=== PATIENT | male | born 1965 | race Caucasian/White ===

== ENCOUNTER 2023-09-20 17:18 | Inpatient (IN) ==
--- NOTE | 2023-09-20 17:40 | DR.GENAD ---
HPI <Fabio Ingram - Last Filed: 09/21/23 08:22> Time Seen Time Seen by Provider: 09/20/23 17:28 Complaint/Symptoms Chief Complaint Doctors Comments: 58-year-old male presents for evaluation. Patient was ill last month, had a persistent cough, workup revealed concerns for cancer. Patient underwent a biopsy approximately 12 days ago, received the results yesterday. Patient has been coughing up blood intermittently over the past 3 days, bright red, small amounts. Having right-sided chest pain, off and on, sharp, does not radiate. No shortness of breath, no pleurisy. Denies fevers but, did have chills today. No report of vomiting or diarrhea. Has had swelling of bilateral feet/ankles over the past 3 months. Nurses notes reviewed Nurses Notes Review: Yes Source History Provided: Patient and Family Member (Brother) Mode of Arrival Mode of Arrival: Ambulatory PM <Fabio Ingram - Last Filed: 09/21/23 08:22> PMH Past Medical History: Yes Past Medical History Comment: Lung CA (dx'd 09/2023) Past Surgical History: Yes Surgical History: Appendectomy and Tonsillectomy Family History History of Family Medical Conditions: Yes Family Medical History: Diabetes Mellitus, Cancer and Heart Failure Social History Does patient currently use any type of tobacco product: No Have you used tobacco products in the last 12 months: Yes (Quit 3 months ago) Alcohol Use: None Do you use any recreational Drugs:: No ROS <Fabio Ingram - Last Filed: 09/21/23 08:22> Review of Systems Constitutional: Chills Eyes: No Symptoms Reported ENTM: No Symptoms Reported Respiratoy: Moist Cough Cardiovascular: Chest Pain (Right side) Gastrointestinal/Abdominal: No Symptoms Reported Genitourinary: No Symptoms Reported Neurological: No Symptoms Reported Musculoskeletal: No Symptoms Reported Integumentary: No Symptoms Reported Hematologic/Lymphatic: No Symptoms Reported Psychiatric: No Symptoms Reported All Other Systems: Reviewed and Negative PE <Fabio Ingram - Last Filed: 09/21/23 08:22> Vital Signs Vitals: Vital Signs Temperature 98.8 F Pulse Rate 101 Pulse Rate 110 Pulse Rate 99 Pulse Rate 105 Pulse Rate 105 Pulse Rate 102 Pulse Rate 106 Pulse Rate 111 Pulse Rate 117 Pulse Rate 121 Respiratory Rate 22 Blood Pressure 122/60 Blood Pressure 119/62 Blood Pressure 125/67 Blood Pressure 131/72 Blood Pressure 138/67 O2 Sat by Pulse Oximetry 98 O2 Sat by Pulse Oximetry 94 O2 Sat by Pulse Oximetry 98 O2 Sat by Pulse Oximetry 98 O2 Sat by Pulse Oximetry 99 O2 Sat by Pulse Oximetry 99 O2 Sat by Pulse Oximetry 99 O2 Sat by Pulse Oximetry 98 O2 Sat by Pulse Oximetry 98 O2 Sat by Pulse Oximetry 98 General General Appearance: Alert and In No Apparent Distress Eyes Eye exam: PERRL and EOMI ENT ENT Exam: Normal Oropharynx, Mucous Membranes Moist and TM's Normal Bilaterally Neck Neck Exam: Normal Inspection and Full ROM Respiratory Respiratory Exam: Normal Lung Sounds Bilat; negative Accessory Muscle Use or Respiratory Distress Cardiovascular Cardiovascular Exam: Regular Rate, Normal Rhythm and Normal Heart Sounds Abdominal Exam Abdominal Exam: Normal Bowel Sounds and Soft; negative Tenderness Extremities Extremities Exam: Edema (2+ pitting edema of bilateral lower exts) Neurologic Neurological Exam: Alert, Oriented X3 and CN II-XII Intact; negative Motor Sensory Deficit Skin Skin Exam: Warm and Dry <Krysten Burns - Last Filed: 09/20/23 21:02> Vital Signs Vitals: Vital Signs Temperature 98.8 F Pulse Rate 101 Pulse Rate 110 Pulse Rate 99 Pulse Rate 105 Pulse Rate 105 Pulse Rate 102 Pulse Rate 106 Pulse Rate 111 Pulse Rate 117 Pulse Rate 121 Respiratory Rate 22 Blood Pressure 122/60 Blood Pressure 119/62 Blood Pressure 125/67 Blood Pressure 131/72 Blood Pressure 138/67 O2 Sat by Pulse Oximetry 98 O2 Sat by Pulse Oximetry 94 O2 Sat by Pulse Oximetry 98 O2 Sat by Pulse Oximetry 98 O2 Sat by Pulse Oximetry 99 O2 Sat by Pulse Oximetry 99 O2 Sat by Pulse Oximetry 99 O2 Sat by Pulse Oximetry 98 O2 Sat by Pulse Oximetry 98 O2 Sat by Pulse Oximetry 98 COURSE <Fabio Ingram - Last Filed: 09/21/23 08:22> Treatment Treatment: 58-year-old male with a recent diagnosis of lung cancer, no treatment initiated yet. Has been having hemoptysis over the past 3 days. Had some chills today. W/u initiated. WBC elevated to 17K. Mildly anemic with a Hgb of 9. CXR with increased markings on the right side consistent with neoplastic process.. CTA obtained, shows postobstructive pneumonia of the right upper lobe, left-sided pulmonary embolus, and neoplastic changes. Patient informed of results. Discussed with Dr. Russell, covering for admission, accepts the admission. Patient was given IV Rocephin to start for pneumonia, will treat with Zosyn. Will treat wih SC Lovenox for PE. ROR <Fabio Ingram - Last Filed: 09/21/23 08:22> Labs Reviewed Laboratory Results Reviewed?: Yes 09/21/23 05:30 09/21/23 05:30 Laboratory: WBC 17.3 X10^3/uL (3.6-10.0) H 09/20/23 17:50 RBC 2.74 X10^6/uL (4.7-6.0) L 09/20/23 17:50 Hgb 9.0 g/dL (13.5-18.0) L 09/20/23 17:50 Hct 25.5 % (42.0-54.0) L 09/20/23 17:50 MCV 93.1 fL (80.0-100.0) 09/20/23 17:50 MCH 32.6 pg (27.0-34.0) 09/20/23 17:50 MCHC 35.1 g/dL (33.0-35.0) H 09/20/23 17:50 RDW 15.2 % (11.6-16.5) 09/20/23 17:50 Plt Count 372 X10^3/uL (150.0-450.0) 09/20/23 17:50 MPV 6.6 fL (7.4-11.0) L 09/20/23 17:50 Neut % (Auto) 87.0 % (42.0-75.0) H 09/20/23 17:50 Lymph % (Auto) 4.0 % (21.0-51.0) L 09/20/23 17:50 [place] % (Auto) 7.1 % (0.0-13.0) 09/20/23 17:50 Eos % (Auto) 1.0 % (0.9-2.9) 09/20/23 17:50 Baso % (Auto) 0.9 % (0.2-1.0) 09/20/23 17:50 Neut # (Auto) 15.0 x10^3/uL (2.2-4.8) H 09/20/23 17:50 Lymph # (Auto) 0.7 X10^3/uL (1.3-2.9) L 09/20/23 17:50 [place] # (Auto) 1.2 x10^3/uL (0.3-0.8) H 09/20/23 17:50 Eos # (Auto) 0.2 x10^3/uL (0.0-0.2) 09/20/23 17:50 Baso # (Auto) 0.2 X10^3/uL (0.0-0.1) H 09/20/23 17:50 Absolute Nucleated RBC 0.0 /100WBC 09/20/23 17:50 PT 14.3 SECONDS (11.8-14.3) 09/20/23 17:50 INR Target Range - 09/20/23 17:50 INR 1.13 (0.8-1.3) 09/20/23 17:50 APTT 30.8 SECONDS (22.9-36.5) 09/20/23 17:50 PTT Comment - 09/20/23 17:50 Sodium 133 mmol/L (136-145) L 09/20/23 17:50 Corrected Sodium TNP 09/20/23 17:50 Potassium 3.9 mmol/L (3.5-5.1) 09/20/23 17:50 Chloride 99 mmol/L (98-107) 09/20/23 17:50 Carbon Dioxide 25.8 mmol/L (21-32) 09/20/23 17:50 BUN 15 mg/dL (7-18) 09/20/23 17:50 Creatinine 0.72 mg/dL (0.70-1.30) 09/20/23 17:50 Est GFR (MDRD) Af Amer > 60 (>60) 09/20/23 17:50 Est GFR (MDRD) Non-Af > 60 (>60) 09/20/23 17:50 Glucose 93 mg/dL (65-99) 09/20/23 17:50 Lactic Acid 0.7 mmol/L (0.4-2.0) 09/20/23 17:50 Calcium 8.9 mg/dL (8.5-10.1) 09/20/23 17:50 Corrected Calcium 10.3 mg/dL (8.5-10.1) H 09/20/23 17:50 Total Bilirubin 0.70 mg/dL (0.2-1.0) 09/20/23 17:50 AST 33 Units/L (15-37) 09/20/23 17:50 ALT 42 Units/L (12-78) 09/20/23 17:50 Alkaline Phosphatase 392 Units/L (46-116) H 09/20/23 17:50 B-Natriuretic Peptide 79.5 pg/mL (0-79) H 09/20/23 17:55 Total Protein 7.7 g/dL (6.4-8.2) 09/20/23 17:50 Albumin 2.3 g/dL (3.4-5.0) L 09/20/23 17:50 Globulin 5.4 g/dL (2.5-4.5) H 09/20/23 17:50 Albumin/Globulin Ratio 0.4 Ratio (1.1-2.1) L 09/20/23 17:50 Lipase 16 Units/L (16-77) 09/20/23 17:50 Specimen Type Clean catch urine 09/20/23 19:46 Urine Color Yellow (YELLOW) 09/20/23 19:46 Urine Appearance Clear (CLEAR) 09/20/23 19:46 Urine pH 6.5 (5.0 - 8.0) 09/20/23 19:46 Ur Specific [place] 1.010 (1.000-1.030) 09/20/23 19:46 Urine Protein 1+ (NEGATIVE) 09/20/23 19:46 Urine Glucose (UA) Negative (NEGATIVE) 09/20/23 19:46 Urine Ketones Negative (NEGATIVE) 09/20/23 19:46 Urine Blood Negative (NEGATIVE) 09/20/23 19:46 Urine Nitrite Negative (NEGATIVE) 09/20/23 19:46 Urine Bilirubin Negative (NEGATIVE) 09/20/23 19:46 Urine Urobilinogen Normal (NORMAL) 09/20/23 19:46 Ur Leukocyte Esterase Negative (NEGATIVE) 09/20/23 19:46 Urine RBC None seen /HPF (0-3) 09/20/23 19:46 Urine WBC None seen /HPF (0-5) 09/20/23 19:46 Ur Squamous Epith Cells Rare /HPF (NEGATIVE) 09/20/23 19:46 Urine Bacteria Negative /HPF (NEGATIVE) 09/20/23 19:46 Ur Culture Indicated? No/not indicated 09/20/23 19:46 XRAY XRAY Interpreted by: Radiologist X-ray Results: EXAM: CTA, CHEST HISTORY: Patient states he got a confirmation of Lung CA on Monday after a biopsy in [facility] per Dr Perrin. Patient states he has been coughing up blood,; COMPARISON: Frontal chest radiograph September 20, 2023 TECHNIQUE: CT angiography of the chest with intravenous contrast. Three-dimensional recons tructions and/or MIPS images were produced and reviewed. FINDINGS: The bolus timing is adequate. There is a small volume of partially occlusive thrombus in left upper lobe pulmonary arterial branch. There is a large right hilar lung mass spanning approximately 8.3 x 6.4 cm encasing the right main pulmonary artery and right main pulmonary bronchus. There is compression and occlusion of the right upper lobe pulmonary artery resulting in no pulmonary arterial flow in the right upper lobe pulmonary artery. Limited visualization of the upper abdomen demonstrates no acute process. Lung windows demonstrate emphysematous change and subpleural cystic formation bilaterally. There is airspace infiltrate in the right upper lobe suggesting postobstructive pneumonia. There is right lower lobe pleural thickening versus small effusion. There is biapical lung scarring. No suspicious bony lesion. IMPRESSION: Positive study for mild burden of partially occlusive thrombus in left upper lobe lobar pulmonary arterial branch. The RV to LV ratio is 0.8. No sign of right heart strain. Large right upper lobe and hilar lung mass encasing bronchovascular structures of the right lung including complete occlusion of the right upper lobe pulmonary arterial branch. Right upper lobe postobstructive pneumonia. Dose reduction techniques including automated exposure control (AEC) and adjustment of mA and kv were utilized. THIS IS AN ELECTRONICALLY VERIFIED FINAL REPORT 09/20/2023 8:02 PM - Electronically signed by Cosmo Morse MD <Krytsen Burns - Last Filed: 09/20/23 21:02> Labs Reviewed Laboratory: WBC 17.3 X10^3/uL (3.6-10.0) H 09/20/23 17:50 RBC 2.74 X10^6/uL (4.7-6.0) L 09/20/23 17:50 Hgb 9.0 g/dL (13.5-18.0) L 09/20/23 17:50 Hct 25.5 % (42.0-54.0) L 09/20/23 17:50 MCV 93.1 fL (80.0-100.0) 09/20/23 17:50 MCH 32.6 pg (27.0-34.0) 09/20/23 17:50 MCHC 35.1 g/dL (33.0-35.0) H 09/20/23 17:50 RDW 15.2 % (11.6-16.5) 09/20/23 17:50 Plt Count 372 X10^3/uL (150.0-450.0) 09/20/23 17:50 MPV 6.6 fL (7.4-11.0) L 09/20/23 17:50 Neut % (Auto) 87.0 % (42.0-75.0) H 09/20/23 17:50 Lymph % (Auto) 4.0 % (21.0-51.0) L 09/20/23 17:50 [place] % (Auto) 7.1 % (0.0-13.0) 09/20/23 17:50 Eos % (Auto) 1.0 % (0.9-2.9) 09/20/23 17:50 Baso % (Auto) 0.9 % (0.2-1.0) 09/20/23 17:50 Neut # (Auto) 15.0 x10^3/uL (2.2-4.8) H 09/20/23 17:50 Lymph # (Auto) 0.7 X10^3/uL (1.3-2.9) L 09/20/23 17:50 [place] # (Auto) 1.2 x10^3/uL (0.3-0.8) H 09/20/23 17:50 Eos # (Auto) 0.2 x10^3/uL (0.0-0.2) 09/20/23 17:50 Baso # (Auto) 0.2 X10^3/uL (0.0-0.1) H 09/20/23 17:50 Absolute Nucleated RBC 0.0 /100WBC 09/20/23 17:50 PT 14.3 SECONDS (11.8-14.3) 09/20/23 17:50 INR Target Range - 09/20/23 17:50 INR 1.13 (0.8-1.3) 09/20/23 17:50 APTT 30.8 SECONDS (22.9-36.5) 09/20/23 17:50 PTT Comment - 09/20/23 17:50 Sodium 133 mmol/L (136-145) L 09/20/23 17:50 Corrected Sodium TNP 09/20/23 17:50 Potassium 3.9 mmol/L (3.5-5.1) 09/20/23 17:50 Chloride 99 mmol/L (98-107) 09/20/23 17:50 Carbon Dioxide 25.8 mmol/L (21-32) 09/20/23 17:50 BUN 15 mg/dL (7-18) 09/20/23 17:50 Creatinine 0.72 mg/dL (0.70-1.30) 09/20/23 17:50 Est GFR (MDRD) Af Amer > 60 (>60) 09/20/23 17:50 Est GFR (MDRD) Non-Af > 60 (>60) 09/20/23 17:50 Glucose 93 mg/dL (65-99) 09/20/23 17:50 Lactic Acid 0.7 mmol/L (0.4-2.0) 09/20/23 17:50 Calcium 8.9 mg/dL (8.5-10.1) 09/20/23 17:50 Corrected Calcium 10.3 mg/dL (8.5-10.1) H 09/20/23 17:50 Total Bilirubin 0.70 mg/dL (0.2-1.0) 09/20/23 17:50 AST 33 Units/L (15-37) 09/20/23 17:50 ALT 42 Units/L (12-78) 09/20/23 17:50 Alkaline Phosphatase 392 Units/L (46-116) H 09/20/23 17:50 B-Natriuretic Peptide 79.5 pg/mL (0-79) H 09/20/23 17:55 Total Protein 7.7 g/dL (6.4-8.2) 09/20/23 17:50 Albumin 2.3 g/dL (3.4-5.0) L 09/20/23 17:50 Globulin 5.4 g/dL (2.5-4.5) H 09/20/23 17:50 Albumin/Globulin Ratio 0.4 Ratio (1.1-2.1) L 09/20/23 17:50 Lipase 16 Units/L (16-77) 09/20/23 17:50 Specimen Type Clean catch urine 09/20/23 19:46 Urine Color Yellow (YELLOW) 09/20/23 19:46 Urine Appearance Clear (CLEAR) 09/20/23 19:46 Urine pH 6.5 (5.0 - 8.0) 09/20/23 19:46 Ur Specific [place] 1.010 (1.000-1.030) 09/20/23 19:46 Urine Protein 1+ (NEGATIVE) 09/20/23 19:46 Urine Glucose (UA) Negative (NEGATIVE) 09/20/23 19:46 Urine Ketones Negative (NEGATIVE) 09/20/23 19:46 Urine Blood Negative (NEGATIVE) 09/20/23 19:46 Urine Nitrite Negative (NEGATIVE) 09/20/23 19:46 Urine Bilirubin Negative (NEGATIVE) 09/20/23 19:46 Urine Urobilinogen Normal (NORMAL) 09/20/23 19:46 Ur Leukocyte Esterase Negative (NEGATIVE) 09/20/23 19:46 Urine RBC None seen /HPF (0-3) 09/20/23 19:46 Urine WBC None seen /HPF (0-5) 09/20/23 19:46 Ur Squamous Epith Cells Rare /HPF (NEGATIVE) 09/20/23 19:46 Urine Bacteria Negative /HPF (NEGATIVE) 09/20/23 19:46 Ur Culture Indicated? No/not indicated 09/20/23 19:46 Opioid <Fabio Ingram - Last Filed: 09/21/23 08:22> Opioid Risk Tool Total: 0 Total Score Risk Category: Low Risk Copyright: Jarrett ANDRDAE predicting aberrant behaviors <Krysten Burns - Last Filed: 09/20/23 21:02> Opioid Risk Tool Total: 0 Total Score Risk Category: Low Risk Discharge Plan Diagnosis Discharge Problem: Pulmonary embolism, Pneumonia, Lung cancer Discharge Plan Patient Disposition: 09 ADMITTED INPATIENT Condition: Stable
[2023-09-20 17:44] VITALS: BMI 23.5
[2023-09-20] MEDS ORDERED: NS 500 ML IV 500 ML IV ONE (17:52)
[2023-09-20] MEDS: NS 500 ML IV 500 ML IV ONE (17:57)
[2023-09-20 18:11] LABS: BASOPHILS # (AUTO) 0.2 X10^3/uL (0.0-0.1); BASOPHILS % (AUTO) 0.9 % (0.2-1.0); EOSINOPHILS # (AUTO) 0.2 x10^3/uL (0.0-0.2); HEMATOCRIT 25.5 % (42.0-54.0); LYMPHOCYTES # (AUTO) 0.7 X10^3/uL (1.3-2.9); MEAN CORPUSCULAR HEMOGLOBIN 32.6 pg (27.0-34.0); MEAN CORPUSCULAR HGB CONC 35.1 g/dL (33.0-35.0); MEAN CORPUSCULAR VOLUME 93.1 fL (80.0-100.0); MEAN PLATELET VOLUME 6.6 fL (7.4-11.0); MONOCYTES # (AUTO) 1.2 x10^3/uL (0.3-0.8); MONOCYTES % (AUTO) 7.1 % (0.0-13.0); PLATELET COUNT 372 X10^3/uL (150.0-450.0); RED BLOOD COUNT 2.74 X10^6/uL (4.7-6.0); RED CELL DISTRIBUTION WIDTH 15.2 % (11.6-16.5); WHITE BLOOD COUNT 17.3 X10^3/uL (3.6-10.0)
[2023-09-20 18:18] LABS: INR 1.13 (0.8-1.3)
[2023-09-20 18:23] LABS: ALANINE AMINOTRANSFERASE 42 Units/L (12-78); ALBUMIN 2.3 g/dL (3.4-5.0); ALKALINE PHOSPHATASE 392 Units/L (46-116); ASPARTATE AMINO TRANSFERASE 33 Units/L (15-37); BLOOD UREA NITROGEN 15 mg/dL (7-18); CALCIUM 8.9 mg/dL (8.5-10.1); CARBON DIOXIDE 25.8 mmol/L (21-32); CHLORIDE 99 mmol/L (98-107); COR CA(FOR HYPOALB) 10.3 mg/dL (8.5-10.1); CREATININE 0.72 mg/dL (0.70-1.30); GLUCOSE 93 mg/dL (65-99); LIPASE 16 Units/L (16-77); POTASSIUM 3.9 mmol/L (3.5-5.1); SODIUM 133 mmol/L (136-145); TOTAL PROTEIN 7.7 g/dL (6.4-8.2); eGFR NON BLACK RACES > 60 (>60)
[2023-09-20] MEDS ORDERED: ROCEPHIN VIAL 1 GRAM ONE (19:03)
[2023-09-20] MEDS: ROCEPHIN VIAL 1 GRAM IVP ONE (19:06)
[2023-09-20] MEDS: NS 100 ML IV 100 ML ONE (19:28)
[2023-09-20] MEDS: OMNIPAQUE 350 mg/mL 100 mL BTL 100 ML ONE (19:29)
[2023-09-20 19:55] LABS: BILIRUBIN,URINE NEGATIVE (NEGATIVE); BLOOD/HEMOGLOBIN,URINE NEGATIVE (NEGATIVE); GLUCOSE, URINE NEGATIVE (NEGATIVE); KETONES,URINE NEGATIVE (NEGATIVE); LEUKOCYTE ESTERASE ,URINE NEGATIVE (NEGATIVE); NITRITES,URINE NEGATIVE (NEGATIVE); PH,URINE 6.5 (5.0 - 8.0); PROTEIN,URINE 1+ (NEGATIVE); UROBILINOGEN,URINE NORMAL (NORMAL)
[2023-09-20 19:56] LABS: APPEARANCE,URINE CLEAR (CLEAR); COLOR,URINE YELLOW (YELLOW)
[2023-09-20 19:59] LABS: BACTERIA,URINE NEGATIVE /HPF (NEGATIVE); RBC,URINE NONE SEEN /HPF (0-3); SQUAMOUS EPITHELIAL CELL,UR RARE /HPF (NEGATIVE)
--- NOTE | 2023-09-20 20:06 | CT ---
EXAM: CTA, CHEST HISTORY: Patient states he got a confirmation of Lung CA on Monday after a biopsy [place] Dr Perrin. Patie nt states he has been coughing up blood,; COMPARISON: Frontal chest radiograph September 20, 2023 TECHNIQUE: CT angiography of the chest with intravenous contrast. Three-dimensional reconstructions and/or MIPS images were produced and reviewed. FINDINGS: The bolus timing is adequate. There is a small volume of partially occlusive thrombus in left upper lobe pulmonary arterial branch. There is a large right hilar lung mass spanning approximately 8.3 x 6.4 cm encasing the right main pulmonary artery and right main pulmonary bronchus. There is compress ion and occlusion of the right upper lobe pulmonary artery resulting in no pulmonary arterial flow in the right upper lobe pulmonary artery. Limited visualization of the upper abdomen demonstrates no acute process. Lung windows demonstrate e mphysematous change and subpleural cystic formation bilaterally. There is airspace infiltrate in the right upper lobe suggesting postobstructive pneumonia. There is right lower lobe pleural thickening versus small effusion. There is biapical lung scarring. No suspicious bony lesion. IMPRESSION: Positive study for mild burden of partially occlusive thrombus in left upper lobe lobar pulmonary art erial branch. The RV to LV ratio is 0.8. No sign of right heart strain. Large right upper lobe and hilar lung mass encasing bronchovascular structures of the right lung incl uding complete occlusion of the right upper lobe pulmonary arterial branch. Right upper lobe postobstructive pneumonia. Dose reduction techniques including automated exposure control (AEC) and adjustment of mA and kv were utilized. THIS IS AN ELECTRONICALLY VERIFIED FINAL REPORT 09/20/2023 8:02 PM - Electronically signed by Cosmo Morse MD
[2023-09-20] MEDS: LOVENOX INJ 80 MG SYR SC SCH (23:57)
[2023-09-20] MEDS: ZOSYN VIAL 3.375 GRAMS 3.375 G in NS 100 ML IV 100 ML IV SCH (23:57)
--- NOTE | 2023-09-21 00:24 | RAD ---
EXAM:CHEST, 1 VIEWHISTORY:hemoptysis, recent lung CA dx;COMPARISON:None.TECHNIQUE:A single frontal view of the chest was obtained.FINDINGS:The heart is normal in size. There is abnormal increased density along the right paratracheal border and involving the medial aspect of the right upper lobe with prominence of the right hilum. Alveolar infiltrates throughout the right lung is also suspected. There is no effusion. There is no pneumothorax. The osseous structures are intact.IMPRESSION:Large right paratracheal mass lesion, infiltrate and probable postobstructive pneumonia involving the right lung.THIS IS AN ELECTRONICALLY VERIFIED FINAL REPORT09/21/2023 12:21 AM - Electronically signed by Trini Miles MD
[2023-09-21 06:21] LABS: BASOPHILS # (AUTO) 0.1 X10^3/uL (0.0-0.1); BASOPHILS % (AUTO) 0.9 % (0.2-1.0); EOSINOPHILS # (AUTO) 0.3 x10^3/uL (0.0-0.2); EOSINOPHILS % (AUTO) 1.8 % (0.9-2.9); HEMATOCRIT 24.6 % (42.0-54.0); HEMOGLOBIN 8.6 g/dL (13.5-18.0); LYMPHOCYTES # (AUTO) 1.4 X10^3/uL (1.3-2.9); LYMPHOCYTES % (AUTO) 10.3 % (21.0-51.0); MEAN CORPUSCULAR HEMOGLOBIN 32.4 pg (27.0-34.0); MEAN CORPUSCULAR HGB CONC 34.9 g/dL (33.0-35.0); MEAN CORPUSCULAR VOLUME 92.8 fL (80.0-100.0); MEAN PLATELET VOLUME 6.8 fL (7.4-11.0); MONOCYTES # (AUTO) 1.3 x10^3/uL (0.3-0.8); NEUTROPHILS # (AUTO) 10.9 x10^3/uL (2.2-4.8); PLATELET COUNT 384 X10^3/uL (150.0-450.0); RED BLOOD COUNT 2.65 X10^6/uL (4.7-6.0); RED CELL DISTRIBUTION WIDTH 15.6 % (11.6-16.5); WHITE BLOOD COUNT 13.9 X10^3/uL (3.6-10.0)
[2023-09-21 06:40] LABS: ALANINE AMINOTRANSFERASE 37 Units/L (12-78); ALKALINE PHOSPHATASE 349 Units/L (46-116); ASPARTATE AMINO TRANSFERASE 29 Units/L (15-37); BLOOD UREA NITROGEN 15 mg/dL (7-18); CALCIUM 8.6 mg/dL (8.5-10.1); CARBON DIOXIDE 27.7 mmol/L (21-32); CHLORIDE 101 mmol/L (98-107); COR CA(FOR HYPOALB) 10.2 mg/dL (8.5-10.1); CREATININE 0.73 mg/dL (0.70-1.30); GLUCOSE 96 mg/dL (65-99); POTASSIUM 3.9 mmol/L (3.5-5.1); SODIUM 135 mmol/L (136-145); eGFR NON BLACK RACES > 60 (>60)
[2023-09-21] MEDS ORDERED: CONSULT PHARMACY - POTASSIUM & MAGNESIUM XX SCH (08:00)
[2023-09-21] MEDS: LOVENOX INJ 80 MG SYR SC SCH (09:56)
[2023-09-21] MEDS: MAG-OX TAB PO SCH (09:56)
[2023-09-21] MEDS: NS 100 ML IV 100 ML with VENOFER 400 MG IV ONE (09:57)
[2023-09-21] MEDS: TUSSIONEX PENNKINETIC SUSP PO PRN (23:18)
[2023-09-22 07:18] LABS: BASOPHILS # (AUTO) 0.1 X10^3/uL (0.0-0.1); BASOPHILS % (AUTO) 0.9 % (0.2-1.0); EOSINOPHILS # (AUTO) 0.2 x10^3/uL (0.0-0.2); EOSINOPHILS % (AUTO) 1.7 % (0.9-2.9); HEMATOCRIT 23.2 % (42.0-54.0); LYMPHOCYTES # (AUTO) 1.3 X10^3/uL (1.3-2.9); LYMPHOCYTES % (AUTO) 10.1 % (21.0-51.0); MEAN CORPUSCULAR HEMOGLOBIN 32.5 pg (27.0-34.0); MEAN CORPUSCULAR HGB CONC 34.7 g/dL (33.0-35.0); MEAN CORPUSCULAR VOLUME 93.8 fL (80.0-100.0); MONOCYTES % (AUTO) 8.2 % (0.0-13.0); NEUTROPHILS # (AUTO) 10.1 x10^3/uL (2.2-4.8); NEUTROPHILS % (AUTO) 79.1 % (42.0-75.0); PLATELET COUNT 382 X10^3/uL (150.0-450.0); RED BLOOD COUNT 2.47 X10^6/uL (4.7-6.0); RED CELL DISTRIBUTION WIDTH 15.3 % (11.6-16.5); WHITE BLOOD COUNT 12.8 X10^3/uL (3.6-10.0)
[2023-09-22 07:40] LABS: ALANINE AMINOTRANSFERASE 35 Units/L (12-78); ALBUMIN 1.9 g/dL (3.4-5.0); ALKALINE PHOSPHATASE 338 Units/L (46-116); ASPARTATE AMINO TRANSFERASE 26 Units/L (15-37); BLOOD UREA NITROGEN 13 mg/dL (7-18); CALCIUM 8.8 mg/dL (8.5-10.1); CARBON DIOXIDE 29.8 mmol/L (21-32); CHLORIDE 101 mmol/L (98-107); COR CA(FOR HYPOALB) 10.5 mg/dL (8.5-10.1); CREATININE 0.67 mg/dL (0.70-1.30); GLUCOSE 101 mg/dL (65-99); MAGNESIUM 1.7 mg/dL (2.0-2.9); POTASSIUM 3.8 mmol/L (3.5-5.1); SODIUM 135 mmol/L (136-145); TOTAL PROTEIN 6.9 g/dL (6.4-8.2); eGFR NON BLACK RACES > 60 (>60)
[2023-09-22] MEDS ORDERED: CONSULT PHARMACY - POTASSIUM & MAGNESIUM XX SCH (09:00)
[2023-09-22] MEDS: K-DUR TAB 20 MEQ PO SCH (10:10)
[2023-09-22] MEDS: MAGNESIUM SULFATE 1 GRAM/100 mL PREMIX 1 G/100 ML BAG IV SCH (10:11)
[2023-09-22] MEDS ORDERED: NS 1,000 ML IV 1,000 ML IV SCH (11:00)
[2023-09-22] MEDS: NS 1,000 ML IV 1,000 ML with MAGNESIUM SULFATE 50% INJ VIAL 1 G IV SCH (11:52)
--- NOTE | 2023-09-22 14:25 | VAS ---
EXAM:LOWER EXT VENOUS, BILATERALHISTORY:LEG PAIN;COMPARISON:None available.TECHNIQUE:Multiple rutledge scale and color flow Doppler images of the deep venous system were obtained of the right and left lower extremity.FINDINGS:The deep venous system of the right and left lower extremities were evaluated from the level of the common femoral vein through the popliteal vein. Normal color flow and augmentation can be observed. In addition, normal compression is seen throughout the deep venous system.IMPRESSION:Negative for DVT.THIS IS AN ELECTRONICALLY VERIFIED FINAL REPORT09/22/2023 2:21 PM - Electronically signed by Salvador Mccabe MD
--- NOTE | 2023-09-23 00:25 | DR.CONSULT ---
CONSULT Consultation for Day of: Date: 09/22/23 Chief Complaint Chief Complaint: 58 yo male heavy smoker with recent diagnosis of right lung biopsy proven small cell lung cancer . Seen in ER c/o some chills. Had CT showing right lung mass encasing right sided pulmonary artery. Also right sdied post obstructive pnemonia. Had CT to further evaluate this and also noted left upper lobe pulmonary embolus . Admitted and started on subcutaneous Lovenox. Has had coughing and has been coughing up blood. Has c/o swelling both legs. Had b/l LE doppler showing no obvious DVT. Asked to consider patient for placement of vena caval filter. Allergies Allergies Allergy/AdvReac Type Severity Reaction Status Date / Time coconut Allergy Verified 09/20/23 18:59 History of Present Illness History of Present Illness: as above Past Medical History Additional Medical History: tobacco abuse, Past Surgical History Surgical History: Appendectomy and Tonsillectomy Family History Family Medical History: Diabetes Mellitus, Cancer and Heart Failure Social History Does patient currently use any type of tobacco product: No Have you used tobacco products in the last 12 months: Yes Type of Tobacco Use: Cigarettes How many years tobacco product used: 44 Packs per day or dips/chews per day: > 1 Does any household member use tobacco: No Alcohol Use: None Drug Use: None Medications Home Medications: coconut Allergy (Verified 09/20/23 18:59) CONTINUE taking the following medications NK 09/20/23 [History] Review of Systems Constitutional: See HPI Eyes: No Symptoms Reported ENT: No Symptoms Reported Respiratory: See HPI Cardiovascular: No Symptoms Reported Gastrointestinal: No Symptoms Reported Genitourinary: No Symptoms Reported Musculoskeletal: No Symptoms Reported Skin: No Symptoms Reported Neurological: No Symptoms Reported Physical Exam Vital Signs: Vital Signs Temperature 99.1 F Temperature 98.7 F Pulse Rate [Left] 105 Pulse Rate [Left] 91 Respiratory Rate 20 Respiratory Rate 18 Blood Pressure [Left Arm] 137/71 Blood Pressure [Left Arm] 132/71 O2 Sat by Pulse Oximetry 95 O2 Sat by Pulse Oximetry 97 Oriented: Normal, Time, Person and Place Eyes: Normal Ear: Normal Nose: Normal Throat: Normal Respiratory: Clear Throughout Cardiovascular: Normal : Normal Auscultation: Bowel Sounds: Normal Palpation: Normal Tenderness: Normal Skin: Normal Musculoskeletal: Normal Psychiatric: Normal Mood Description: Calm Affect: Normal Speech Pattern: Clear Plan (1) Pulmonary embolism: Status: Acute Plan: With diagnosis of pulmonary embolus and question of bleeding with Lovenox patient should be considered for vena caval filter placement. Not significant burden of pulmonary embolus and hence does not need catheter directed thrombolysis or directed thrombectomy. Proecedure of vena caval filter placement discussed with the patient. (2) Pneumonia: Status: Acute Plan: IV antibiotics (3) Lung cancer: Status: Acute Plan: Unresectable small cell lung cancer. Will be considered for pritesh motherapy in the future . Lung cancer and the treatment increase risk of pulmonary embolus, another reason to consider placement of vena caval filter.
[2023-09-23 06:31] LABS: BASOPHILS # (AUTO) 0.1 X10^3/uL (0.0-0.1); EOSINOPHILS # (AUTO) 0.2 x10^3/uL (0.0-0.2); EOSINOPHILS % (AUTO) 1.6 % (0.9-2.9); HEMOGLOBIN 8.1 g/dL (13.5-18.0); LYMPHOCYTES # (AUTO) 1.5 X10^3/uL (1.3-2.9); LYMPHOCYTES % (AUTO) 10.8 % (21.0-51.0); MEAN CORPUSCULAR HEMOGLOBIN 32.5 pg (27.0-34.0); MEAN CORPUSCULAR HGB CONC 35.1 g/dL (33.0-35.0); MEAN CORPUSCULAR VOLUME 92.6 fL (80.0-100.0); MEAN PLATELET VOLUME 6.6 fL (7.4-11.0); MONOCYTES # (AUTO) 1.2 x10^3/uL (0.3-0.8); MONOCYTES % (AUTO) 8.7 % (0.0-13.0); NEUTROPHILS # (AUTO) 10.9 x10^3/uL (2.2-4.8); NEUTROPHILS % (AUTO) 77.9 % (42.0-75.0); PLATELET COUNT 366 X10^3/uL (150.0-450.0); RED BLOOD COUNT 2.48 X10^6/uL (4.7-6.0); RED CELL DISTRIBUTION WIDTH 15.4 % (11.6-16.5)
[2023-09-23 06:46] LABS: ALANINE AMINOTRANSFERASE 31 Units/L (12-78); ALKALINE PHOSPHATASE 338 Units/L (46-116); ASPARTATE AMINO TRANSFERASE 27 Units/L (15-37); BLOOD UREA NITROGEN 12 mg/dL (7-18); CALCIUM 8.7 mg/dL (8.5-10.1); CARBON DIOXIDE 27.6 mmol/L (21-32); CHLORIDE 98 mmol/L (98-107); COR CA(FOR HYPOALB) 10.3 mg/dL (8.5-10.1); CREATININE 0.77 mg/dL (0.70-1.30); GLUCOSE 90 mg/dL (65-99); POTASSIUM 4.1 mmol/L (3.5-5.1); SODIUM 132 mmol/L (136-145); TOTAL PROTEIN 7.2 g/dL (6.4-8.2); eGFR NON BLACK RACES > 60 (>60)
--- NOTE | 2023-09-23 18:45 | NOTE.SOAP ---
Soap Note Note for Day of Date of Exam: 09/23/23 Subjective Data Subjective Data: Patient stable . Has no questions about the placement of vena caval filter. Objective Data Temperature: 100.5 F Pulse Rate: 110 (133/72) Respiratory Rate: 20 Blood Pressure: 133/72 Objective Data: No change in PE Assessment Assessment: pulmonary embolus and lung cancer Plan Plan: vena caval filter placement on 09/25/2023
[2023-09-24 07:02] LABS: BASOPHILS # (AUTO) 0.1 X10^3/uL (0.0-0.1); BASOPHILS % (AUTO) 0.9 % (0.2-1.0); EOSINOPHILS # (AUTO) 0.2 x10^3/uL (0.0-0.2); EOSINOPHILS % (AUTO) 1.4 % (0.9-2.9); HEMATOCRIT 22.8 % (42.0-54.0); LYMPHOCYTES # (AUTO) 0.8 X10^3/uL (1.3-2.9); MEAN CORPUSCULAR HEMOGLOBIN 32.3 pg (27.0-34.0); MEAN CORPUSCULAR VOLUME 92.5 fL (80.0-100.0); MEAN PLATELET VOLUME 6.5 fL (7.4-11.0); MONOCYTES # (AUTO) 1.2 x10^3/uL (0.3-0.8); MONOCYTES % (AUTO) 8.5 % (0.0-13.0); NEUTROPHILS # (AUTO) 11.4 x10^3/uL (2.2-4.8); NEUTROPHILS % (AUTO) 83.2 % (42.0-75.0); PLATELET COUNT 391 X10^3/uL (150.0-450.0); RED BLOOD COUNT 2.46 X10^6/uL (4.7-6.0); RED CELL DISTRIBUTION WIDTH 15.1 % (11.6-16.5); WHITE BLOOD COUNT 13.7 X10^3/uL (3.6-10.0)
[2023-09-24 07:28] LABS: ALANINE AMINOTRANSFERASE 29 Units/L (12-78); ALBUMIN 1.9 g/dL (3.4-5.0); ALKALINE PHOSPHATASE 318 Units/L (46-116); ASPARTATE AMINO TRANSFERASE 27 Units/L (15-37); BLOOD UREA NITROGEN 11 mg/dL (7-18); CALCIUM 8.6 mg/dL (8.5-10.1); CARBON DIOXIDE 26.7 mmol/L (21-32); CHLORIDE 97 mmol/L (98-107); COR CA(FOR HYPOALB) 10.3 mg/dL (8.5-10.1); CREATININE 0.69 mg/dL (0.70-1.30); GLUCOSE 94 mg/dL (65-99); SODIUM 132 mmol/L (136-145); TOTAL PROTEIN 7.2 g/dL (6.4-8.2); eGFR NON BLACK RACES > 60 (>60)
--- NOTE | 2023-09-24 10:39 | PCM.PROG ---
Progress Note - Progress Note for Day of Date of Exam: 09/23/23 - Subjective Subjective: IS A 58 YEAR OLD PATIENT OF . HE IS CURRENTLY INPATIENT STATUS FOR TREATMENT OF ANEMIA SECONDARY TO CHRONIC BLOOD LOSS, RIGHT UPPER LOBE LUNG CANCER, POST OBSTRUCTIVE PNEUMONIA, AND PARITALLY OBSTRUCTING PULMONARY EMBOLISM. HE WAS INTIALLY STARTED ON IV HEPARIN, HOWEVER, WAS UNABLE TO TOLERATE DUE TO IT CAUSING INCREASED HEMOPTYSIS. WAS CONSULTED AND PLANS FOR VENA CAVAL FILTER PLACEMENT ON MONDAY. TODAY, PATIENT IS ALERT AND ORIENTED, LYING IN BED ON MORNING ROUNDS. HE COMPLAINS OF SHORTNESS OF BREATH AT TIMES AND GENERALIZED WEAKNESS. ON EXAMINATION, HEART IS REGULAR IN RATE AND RHYTHM. BILATERAL LUNGS ARE NOTED WITH DIMINISHED LUNG SOUNDS THROUGHOUT. ABDOME N IS ROUND, SOFT, AND NON-TENDER WITH NORMAL BOWEL SOUNDS NOTED IN ALL QUADRANTS. GOOD RANGE OF MOTION NOTED TO UPPER AND LOWER EXTREMITIES WITH NO EDEMA NOTED. HIS VITALS THIS MORNING ARE: 98.2-100-18-94%-137/73. LABS WERE OBTAINED. WBC 13.7, RBC 2.46, HGB 8.0, HCT 22.8, PLT COUNT 391, SODIUM 132, POTASSIUM 4.0, CHLORIDE 97, BUN 11, CREATININE 0.69, GLUCOSE 94, CALCIUM 8.6, MAGNESIUM 1.9, TOTAL BILI 0.60, AST 27, ALT 29, ALK PHOS 318, TOTAL PROTEIN 7.2, ALBUMIN 1.9. BLOOD CULTURES ARE PENDING. HE IS CURRENTLY RECEIVING NORMAL SALINE WITH MAGNESIUM AT 80 ML/HR, ZOSYN 3.375G IV TID, MAG OX 800MG BID, TUSSIONEX 5ML Q12H PRN. WE WILL CONTINUE WITH CURRENT PLAN OF CARE TODAY. OTHERWISE, WE WILL FOLLOW-UP WITH AM LABS AND CONTINUE TO MONITOR. TIME SPENT ON CLINICAL ASSESSMENT, REVIEWING LABS AND IMAGING, DECISION MAKING, AND DOCUMENTATION GREATER THAN 45 MINUTES. - Past Medical Family Social History Past Med/Fam/Surg Hx: No changes since H&P Allergies: Allergies coconut Allergy (Verified 09/20/23 18:59) - Review of Systems ROS: No change since H&P - Vital Signs and I&O's Vital Signs: Vital Signs Temperature 98.4 F Temperature 99.4 F Pulse Rate [Left] 102 Pulse Rate [Left] 111 Respiratory Rate 18 Respiratory Rate 20 Blood Pressure [Right Arm] 141/73 Blood Pressure [Right Arm] 132/75 O2 Sat by Pulse Oximetry 96 O2 Sat by Pulse Oximetry 92 Intake and Output: Intake & Output 09/21/23 09/22/23 09/23/23 09/24/23 11:59 11:59 11:59 11:59 Intake Total 348 / 348 1720 / 1720 2393 / 2393 1770 / 1770 Balance 348 / 348 1720 / 1720 2393 / 2393 1770 / 1770 - Physical Exam Oriented: Normal, Time, Person, Place Eyes: Normal Ear: Normal Nose: Normal Throat: Normal Respiratory: Generalized, Diminished Cardiovascular: Normal : Normal Auscultation: Bowel Sounds: Normal Palpation: Normal Tenderness: Normal Skin: Normal Musculoskeletal: Normal Psychiatric: Normal Mood Description: Calm Affect: Normal Speech Pattern: Clear, Appropriate - Laboratory and Diagnostics Result Diagrams: 09/24/23 06:30 09/24/23 06:30 Labs: 09/20/23 17:55 Blood Blood Culture - Preliminary 09/20/23 17:50 Blood Blood Culture - Preliminary Laboratory WBC 13.7 X10^3/uL (3.6-10.0) H 09/24/23 06:30 RBC 2.46 X10^6/uL (4.7-6.0) L 09/24/23 06:30 Hgb 8.0 g/dL (13.5-18.0) L 09/24/23 06:30 Hct 22.8 % (42.0-54.0) L 09/24/23 06:30 MCV 92.5 fL (80.0-100.0) 09/24/23 06:30 MCH 32.3 pg (27.0-34.0) 09/24/23 06:30 MCHC 35.0 g/dL (33.0-35.0) 09/24/23 06:30 RDW 15.1 % (11.6-16.5) 09/24/23 06:30 Plt Count 391 X10^3/uL (150.0-450.0) 09/24/23 06:30 MPV 6.5 fL (7.4-11.0) L 09/24/23 06:30 Neut % (Auto) 83.2 % (42.0-75.0) H 09/24/23 06:30 Lymph % (Auto) 6.0 % (21.0-51.0) L 09/24/23 06:30 [place] % (Auto) 8.5 % (0.0-13.0) 09/24/23 06:30 Eos % (Auto) 1.4 % (0.9-2.9) 09/24/23 06:30 Baso % (Auto) 0.9 % (0.2-1.0) 09/24/23 06:30 Neut # (Auto) 11.4 x10^3/uL (2.2-4.8) H 09/24/23 06:30 Lymph # (Auto) 0.8 X10^3/uL (1.3-2.9) L 09/24/23 06:30 [place] # (Auto) 1.2 x10^3/uL (0.3-0.8) H 09/24/23 06:30 Eos # (Auto) 0.2 x10^3/uL (0.0-0.2) 09/24/23 06:30 Baso # (Auto) 0.1 X10^3/uL (0.0-0.1) 09/24/23 06:30 Absolute Nucleated RBC 0.0 /100WBC 09/24/23 06:30 PT 14.3 SECONDS (11.8-14.3) 09/20/23 17:50 INR Target Range - 09/20/23 17:50 INR 1.13 (0.8-1.3) 09/20/23 17:50 APTT 30.8 SECONDS (22.9-36.5) 09/20/23 17:50 PTT Comment - 09/20/23 17:50 Sodium 132 mmol/L (136-145) L 09/24/23 06:30 Corrected Sodium TNP 09/24/23 06:30 Potassium 4.0 mmol/L (3.5-5.1) 09/24/23 06:30 Chloride 97 mmol/L (98-107) L 09/24/23 06:30 Carbon Dioxide 26.7 mmol/L (21-32) 09/24/23 06:30 BUN 11 mg/dL (7-18) 09/24/23 06:30 Creatinine 0.69 mg/dL (0.70-1.30) L 09/24/23 06:30 Est GFR (MDRD) Af Amer > 60 (>60) 09/24/23 06:30 Est GFR (MDRD) Non-Af > 60 (>60) 09/24/23 06:30 Glucose 94 mg/dL (65-99) 09/24/23 06:30 Lactic Acid 0.7 mmol/L (0.4-2.0) 09/20/23 17:50 Calcium 8.6 mg/dL (8.5-10.1) 09/24/23 06:30 Corrected Calcium 10.3 mg/dL (8.5-10.1) H 09/24/23 06:30 Magnesium 1.9 mg/dL (2.0-2.9) L 09/24/23 06:30 Total Bilirubin 0.60 mg/dL (0.2-1.0) 09/24/23 06:30 AST 27 Units/L (15-37) 09/24/23 06:30 ALT 29 Units/L (12-78) 09/24/23 06:30 Alkaline Phosphatase 318 Units/L (46-116) H 09/24/23 06:30 B-Natriuretic Peptide 79.5 pg/mL (0-79) H 09/20/23 17:55 Total Protein 7.2 g/dL (6.4-8.2) 09/24/23 06:30 Albumin 1.9 g/dL (3.4-5.0) L 09/24/23 06:30 Globulin 5.3 g/dL (2.5-4.5) H 09/24/23 06:30 Albumin/Globulin Ratio 0.4 Ratio (1.1-2.1) L 09/24/23 06:30 Lipase 16 Units/L (16-77) 09/20/23 17:50 Specimen Type Clean catch urine 09/20/23 19:46 Urine Color Yellow (YELLOW) 09/20/23 19:46 Urine Appearance Clear (CLEAR) 09/20/23 19:46 Urine pH 6.5 (5.0 - 8.0) 09/20/23 19:46 Ur Specific [place] 1.010 (1.000-1.030) 09/20/23 19:46 Urine Protein 1+ (NEGATIVE) 09/20/23 19:46 Urine Glucose (UA) Negative (NEGATIVE) 09/20/23 19:46 Urine Ketones Negative (NEGATIVE) 09/20/23 19:46 Urine Blood Negative (NEGATIVE) 09/20/23 19:46 Urine Nitrite Negative (NEGATIVE) 09/20/23 19:46 Urine Bilirubin Negative (NEGATIVE) 09/20/23 19:46 Urine Urobilinogen Normal (NORMAL) 09/20/23 19:46 Ur Leukocyte Esterase Negative (NEGATIVE) 09/20/23 19:46 Urine RBC None seen /HPF (0-3) 09/20/23 19:46 Urine WBC None seen /HPF (0-5) 09/20/23 19:46 Ur Squamous Epith Cells Rare /HPF (NEGATIVE) 09/20/23 19:46 Urine Bacteria Negative /HPF (NEGATIVE) 09/20/23 19:46 Ur Culture Indicated? No/not indicated 09/20/23 19:46 - Plan (1) Anemia Status: Acute Qualifiers: Anemia type: iron deficiency Iron deficiency anemia type: chronic blood loss Qualified Code(s): D50.0 - Iron deficiency anemia secondary to blood loss (chronic) (2) Pulmonary embolism Status: Acute Qualifiers: Pulmonary embolism type: unspecified Chronicity: acute Acute cor pulmonale presence: unspecified Qualified Code(s): I26.99 - Other pulmonary embolism without acute cor pulmonale (3) Pneumonia Status: Acute Qualifiers: Pneumonia type: due to unspecified organism Laterality: right Lung location: upper lobe of lung Qualified Code(s): J18.9 - Pneumonia, unspecified organism (4) Hyponatremia Status: Acute (5) Hypomagnesemia Status: Acute (6) Lung cancer Status: Chronic Qualifiers: Laterality: right Lung location: unspecified part of lung Qualified Code(s): C34.91 - Malignant neoplasm of unspecified part of right bronchus or lung
--- NOTE | 2023-09-24 17:40 | NOTE.SOAP ---
Soap Note Note for Day of Date of Exam: 09/24/23 Subjective Data Subjective Data: Nothing new to report Objective Data Temperature: 98.9 F Pulse Rate: 110 Respiratory Rate: 18 Blood Pressure: 150/70 O2 Sat by Pulse Oximetry: 96 Objective Data: Lungs clear Assessment Assessment: Pulmonary embolus Plan Plan: Place vena caval filter
--- NOTE | 2023-09-24 23:01 | PCM.PROG ---
Progress Note - Progress Note for Day of Date of Exam: 09/24/23 - Subjective Subjective: IS A 58 YEAR OLD PATIENT OF . HE IS CURRENTLY INPATIENT STATUS FOR TREATMENT OF ANEMIA SECONDARY TO CHRONIC BLOOD LOSS, RIGHT UPPER LOBE LUNG CANCER, POST OBSTRUCTIVE PNEUMONIA, AND PARITALLY OBSTRUCTING PULMONARY EMBOLISM. HE WAS INTIALLY STARTED ON IV HEPARIN, HOWEVER, WAS UNABLE TO TOLERATE DUE TO IT CAUSING INCREASED HEMOPTYSIS. WAS CONSULTED AND PLANS FOR VENA CAVAL FILTER PLACEMENT ON MONDAY. TODAY, PATIENT IS ALERT AND ORIENTED, LYING IN BED ON MORNING ROUNDS. HE COMPLAINS OF SHORTNESS OF BREATH AT TIMES AND GENERALIZED WEAKNESS. ON EXAMINATION, HEART IS REGULAR IN RATE AND RHYTHM. BILATERAL LUNGS ARE NOTED WITH DIMINISHED LUNG SOUNDS THROUGHOUT. ABDOME N IS ROUND, SOFT, AND NON-TENDER WITH NORMAL BOWEL SOUNDS NOTED IN ALL QUADRANTS. GOOD RANGE OF MOTION NOTED TO UPPER AND LOWER EXTREMITIES WITH NO EDEMA NOTED. HIS VITALS THIS MORNING ARE: 98.4-100-18-96%-141/73. LABS WERE OBTAINED. WBC 13.7, RBC 2.46, HGB 8.0, HCT 22.8, PLT COUNT 391, SODIUM 132, POTASSIUM 4.0, CHLORIDE 97, BUN 11, CREATININE 0.69, GLUCOSE 94, CALCIUM 8.6, MAGNESIUM 1.9, AST 27, ALT 29, ALK PHOS 318, TOTAL PROTEIN 7.2, ALBUMIN 1.9. BLOOD CULTURES ARE PENDING. HE IS CURRENTLY RECEIVING NORMAL SALINE WITH MAGNESIUM AT 80 ML/HR, ZOSYN 3.375G IV TID, MAG OX 800MG BID, TUSSIONEX 5ML Q12H PRN. WE WILL CONTINUE WITH CURRENT PLAN OF CARE TODAY. OTHERWISE, WE WILL FOLLOW-UP WITH AM LABS AND CONTINUE TO MONITOR. TIME SPENT ON CLINICAL ASSESSMENT, REVIEWING LABS AND IMAGING, DECISION MAKING, AND DOCUMENTATION GREATER THAN 45 MINUTES. - Past Medical Family Social History Past Med/Fam/Surg Hx: No changes since H&P Allergies: Allergies coconut Allergy (Verified 09/20/23 18:59) - Review of Systems ROS: No change since H&P - Vital Signs and I&O's Vital Signs: Vital Signs Temperature 99.7 F Temperature 98.9 F Temperature 98.9 F Pulse Rate [Left] 111 Pulse Rate [Left] 110 Pulse Rate 110 Respiratory Rate 18 Respiratory Rate 18 Respiratory Rate 18 Blood Pressure [Right Arm] 138/67 Blood Pressure [Right Arm] 150/70 Blood Pressure 150/70 O2 Sat by Pulse Oximetry 97 O2 Sat by Pulse Oximetry 96 O2 Sat by Pulse Oximetry 96 Intake and Output: Intake & Output 09/22/23 09/23/23 09/24/23 09/25/23 11:59 11:59 11:59 11:59 Intake Total 1720 / 1720 2393 / 2393 1770 / 1770 2144 / 2144 Balance 1720 / 1720 2393 / 2393 1770 / 1770 2144 / 2144 - Physical Exam Oriented: Normal, Time, Person, Place Eyes: Normal Ear: Normal Nose: Normal Throat: Normal Respiratory: Generalized, Diminished Cardiovascular: Normal : Normal Auscultation: Bowel Sounds: Normal Tenderness: Normal Skin: Normal Musculoskeletal: Normal Psychiatric: Normal Mood Description: Calm Affect: Normal Speech Pattern: Clear, Appropriate - Laboratory and Diagnostics Result Diagrams: 09/24/23 06:30 09/24/23 06:30 Labs: 09/20/23 17:55 Blood Blood Culture - Preliminary 09/20/23 17:50 Blood Blood Culture - Preliminary Laboratory WBC 13.7 X10^3/uL (3.6-10.0) H 09/24/23 06:30 RBC 2.46 X10^6/uL (4.7-6.0) L 09/24/23 06:30 Hgb 8.0 g/dL (13.5-18.0) L 09/24/23 06:30 Hct 22.8 % (42.0-54.0) L 09/24/23 06:30 MCV 92.5 fL (80.0-100.0) 09/24/23 06:30 MCH 32.3 pg (27.0-34.0) 09/24/23 06:30 MCHC 35.0 g/dL (33.0-35.0) 09/24/23 06:30 RDW 15.1 % (11.6-16.5) 09/24/23 06:30 Plt Count 391 X10^3/uL (150.0-450.0) 09/24/23 06:30 MPV 6.5 fL (7.4-11.0) L 09/24/23 06:30 Neut % (Auto) 83.2 % (42.0-75.0) H 09/24/23 06:30 Lymph % (Auto) 6.0 % (21.0-51.0) L 09/24/23 06:30 [place] % (Auto) 8.5 % (0.0-13.0) 09/24/23 06:30 Eos % (Auto) 1.4 % (0.9-2.9) 09/24/23 06:30 Baso % (Auto) 0.9 % (0.2-1.0) 09/24/23 06:30 Neut # (Auto) 11.4 x10^3/uL (2.2-4.8) H 09/24/23 06:30 Lymph # (Auto) 0.8 X10^3/uL (1.3-2.9) L 09/24/23 06:30 [place] # (Auto) 1.2 x10^3/uL (0.3-0.8) H 09/24/23 06:30 Eos # (Auto) 0.2 x10^3/uL (0.0-0.2) 09/24/23 06:30 Baso # (Auto) 0.1 X10^3/uL (0.0-0.1) 09/24/23 06:30 Absolute Nucleated RBC 0.0 /100WBC 09/24/23 06:30 PT 14.3 SECONDS (11.8-14.3) 09/20/23 17:50 INR Target Range - 09/20/23 17:50 INR 1.13 (0.8-1.3) 09/20/23 17:50 APTT 30.8 SECONDS (22.9-36.5) 09/20/23 17:50 PTT Comment - 09/20/23 17:50 Sodium 132 mmol/L (136-145) L 09/24/23 06:30 Corrected Sodium TNP 09/24/23 06:30 Potassium 4.0 mmol/L (3.5-5.1) 09/24/23 06:30 Chloride 97 mmol/L (98-107) L 09/24/23 06:30 Carbon Dioxide 26.7 mmol/L (21-32) 09/24/23 06:30 BUN 11 mg/dL (7-18) 09/24/23 06:30 Creatinine 0.69 mg/dL (0.70-1.30) L 09/24/23 06:30 Est GFR (MDRD) Af Amer > 60 (>60) 09/24/23 06:30 Est GFR (MDRD) Non-Af > 60 (>60) 09/24/23 06:30 Glucose 94 mg/dL (65-99) 09/24/23 06:30 Lactic Acid 0.7 mmol/L (0.4-2.0) 09/20/23 17:50 Calcium 8.6 mg/dL (8.5-10.1) 09/24/23 06:30 Corrected Calcium 10.3 mg/dL (8.5-10.1) H 09/24/23 06:30 Magnesium 1.9 mg/dL (2.0-2.9) L 09/24/23 06:30 Total Bilirubin 0.60 mg/dL (0.2-1.0) 09/24/23 06:30 AST 27 Units/L (15-37) 09/24/23 06:30 ALT 29 Units/L (12-78) 09/24/23 06:30 Alkaline Phosphatase 318 Units/L (46-116) H 09/24/23 06:30 B-Natriuretic Peptide 79.5 pg/mL (0-79) H 09/20/23 17:55 Total Protein 7.2 g/dL (6.4-8.2) 09/24/23 06:30 Albumin 1.9 g/dL (3.4-5.0) L 09/24/23 06:30 Globulin 5.3 g/dL (2.5-4.5) H 09/24/23 06:30 Albumin/Globulin Ratio 0.4 Ratio (1.1-2.1) L 09/24/23 06:30 Lipase 16 Units/L (16-77) 09/20/23 17:50 Specimen Type Clean catch urine 09/20/23 19:46 Urine Color Yellow (YELLOW) 09/20/23 19:46 Urine Appearance Clear (CLEAR) 09/20/23 19:46 Urine pH 6.5 (5.0 - 8.0) 09/20/23 19:46 Ur Specific [place] 1.010 (1.000-1.030) 09/20/23 19:46 Urine Protein 1+ (NEGATIVE) 09/20/23 19:46 Urine Glucose (UA) Negative (NEGATIVE) 09/20/23 19:46 Urine Ketones Negative (NEGATIVE) 09/20/23 19:46 Urine Blood Negative (NEGATIVE) 09/20/23 19:46 Urine Nitrite Negative (NEGATIVE) 09/20/23 19:46 Urine Bilirubin Negative (NEGATIVE) 09/20/23 19:46 Urine Urobilinogen Normal (NORMAL) 09/20/23 19:46 Ur Leukocyte Esterase Negative (NEGATIVE) 09/20/23 19:46 Urine RBC None seen /HPF (0-3) 09/20/23 19:46 Urine WBC None seen /HPF (0-5) 09/20/23 19:46 Ur Squamous Epith Cells Rare /HPF (NEGATIVE) 09/20/23 19:46 Urine Bacteria Negative /HPF (NEGATIVE) 09/20/23 19:46 Ur Culture Indicated? No/not indicated 09/20/23 19:46 - Plan (1) Anemia Status: Acute Qualifiers: Anemia type: iron deficiency Iron deficiency anemia type: chronic blood loss Qualified Code(s): D50.0 - Iron deficiency anemia secondary to blood loss (chronic) (2) Pulmonary embolism Status: Acute Qualifiers: Pulmonary embolism type: unspecified Chronicity: acute Acute cor pulmonale presence: unspecified Qualified Code(s): I26.99 - Other pulmonary embolism without acute cor pulmonale (3) Pneumonia Status: Acute Qualifiers: Pneumonia type: due to unspecified organism Laterality: right Lung location: upper lobe of lung Qualified Code(s): J18.9 - Pneumonia, unspecified organism (4) Hyponatremia Status: Acute (5) Hypomagnesemia Status: Acute (6) Lung cancer Status: Chronic Qualifiers: Laterality: right Lung location: unspecified part of lung Qualified Code(s): C34.91 - Malignant neoplasm of unspecified part of right bronchus or lung
[2023-09-24] MEDS: TYLENOL 325 MG TAB PO PRN (23:55)
[2023-09-25 06:33] LABS: BASOPHILS # (AUTO) 0.1 X10^3/uL (0.0-0.1); BASOPHILS % (AUTO) 0.7 % (0.2-1.0); EOSINOPHILS # (AUTO) 0.2 x10^3/uL (0.0-0.2); EOSINOPHILS % (AUTO) 1.5 % (0.9-2.9); HEMATOCRIT 22.8 % (42.0-54.0); HEMOGLOBIN 8.1 g/dL (13.5-18.0); LYMPHOCYTES # (AUTO) 1.2 X10^3/uL (1.3-2.9); MEAN CORPUSCULAR HEMOGLOBIN 32.9 pg (27.0-34.0); MEAN CORPUSCULAR HGB CONC 35.5 g/dL (33.0-35.0); MEAN CORPUSCULAR VOLUME 92.5 fL (80.0-100.0); MEAN PLATELET VOLUME 6.6 fL (7.4-11.0); MONOCYTES # (AUTO) 1.1 x10^3/uL (0.3-0.8); MONOCYTES % (AUTO) 8.5 % (0.0-13.0); NEUTROPHILS # (AUTO) 9.8 x10^3/uL (2.2-4.8); NEUTROPHILS % (AUTO) 79.3 % (42.0-75.0); PLATELET COUNT 385 X10^3/uL (150.0-450.0); RED BLOOD COUNT 2.47 X10^6/uL (4.7-6.0); RED CELL DISTRIBUTION WIDTH 15.1 % (11.6-16.5); WHITE BLOOD COUNT 12.4 X10^3/uL (3.6-10.0)
[2023-09-25 06:47] LABS: ALANINE AMINOTRANSFERASE 30 Units/L (12-78); ALKALINE PHOSPHATASE 296 Units/L (46-116); ASPARTATE AMINO TRANSFERASE 27 Units/L (15-37); BLOOD UREA NITROGEN 10 mg/dL (7-18); CALCIUM 8.6 mg/dL (8.5-10.1); CARBON DIOXIDE 28.9 mmol/L (21-32); CHLORIDE 100 mmol/L (98-107); COR CA(FOR HYPOALB) 10.2 mg/dL (8.5-10.1); CREATININE 0.72 mg/dL (0.70-1.30); GLUCOSE 101 mg/dL (65-99); POTASSIUM 3.7 mmol/L (3.5-5.1); SODIUM 137 mmol/L (136-145); TOTAL PROTEIN 7.1 g/dL (6.4-8.2); eGFR NON BLACK RACES > 60 (>60)
[2023-09-25] MEDS: LR 1,000 ML IV 1,000 ML IV ONE ×2 (07:22→07:48)
[2023-09-25] MEDS: DUONEB 0.5 MG/3 MG (3 mL) NEB ONE (07:37)
--- NOTE | 2023-09-25 07:58 | EKG ---
Test Reason : in PACU Blood Pressure : */* mmHG Vent. Rate : 103 BPM Atrial Rate : 103 BPM P-R Int : 112 ms QRS Dur : 88 ms QT Int : 354 ms P-R-T Axes : 18 56 56 degrees QTc Int : 463 ms Sinus tachycardia Otherwise normal ECG No previous ECGs available Confirmed by Scott Donovan MD ([id number]) on 09/25/2023 1:39:56 PM Referred By: Confirmed By: Scott Donovan MD
[2023-09-25] MEDS: VERSED ONE (08:00)
[2023-09-25] MEDS: FENTANYL VIAL INJ 100 mcg ONE (08:00)
[2023-09-25] MEDS: DIPRIVAN VIAL 20 ML ONE (08:00)
[2023-09-25] MEDS: HEPARIN SODIUM INJ 5000 UNITS ONE (08:19)
[2023-09-25] MEDS: VISIPAQUE 100 ML ONE (08:19)
[2023-09-25] MEDS: MARCAINE/EPINEPHRINE ONE (08:19)
[2023-09-25] MEDS: NS 500 ML IV 500 ML IV ONE (08:19)
[2023-09-25] MEDS: KETAMINE 50 MG/5 ML-NACL SYRNG ONE (08:31)
--- NOTE | 2023-09-25 10:14 | RAD ---
EXAM:CHEST, 1 VIEWHISTORY:IVC FILTER PLACEMENT, ACCESS THROUGH NECK;COMPARISON:CTA chest and CXR from 09/20/2023.TECHNIQUE:AP view of the chestFINDINGS:Cardiac silhouette is normal in size. There is enlargement of the right paratracheal stripe/superior mediastinum consistent with known adenopathy. Known right upper lobe pulmonary mass. Mild hazy opacity in the remaining right upper lobe. Background of COPD. No pleural effusion or pneumothorax.IMPRESSION:Known right upper lobe pulmonary mass. Known mediastinal adenopathy. Hazy right upper lobe opacity may represent atelectasis and/or postobstructive pneumonia. No pneumothorax.THIS IS AN ELECTRONICALLY VERIFIED FINAL REPORT09/25/2023 10:03 AM - Electronically signed by Smith Tariq MD
--- NOTE | 2023-09-25 12:03 | OR.IMMED ---
IMMEDIATE POST-OP NOTE Immediate Post-Op Note Date of surgery/procedure: 09/25/23 Pre-Op Diagnosis: recent pulmonary embolus , diagnosis no small cell lung cancer right upper lobe Post-Op Diagnosis: same, Procedure: PLACEMENT VENA CAVAL FILTER Description of Procedure: SEE DICTATON Surgeon/Tobacco Drummer: NANCI Findings: ABOVE Estimated Blood Loss: MINIMAL Complications: NONE Progress Notes: RETURNED TO FLOOR, POST PROCEDURE CXR WITHOUT PNEUMOTHORAX
--- NOTE | 2023-09-25 12:21 | DR.OPNOTE ---
OP NOTE Pre-Op Diagnosis: PULMONARY EMBOLUS, NON SMALL CELL LUNG CANCER Post-Op Diagnosis: SAME Procedure Date Date Of Procedure: 09/25/23 Procedure: PROCEDURE : INFERIOR VENA CAVAL FILTER PLACEMENT NARRATIVE : The patient was taken to the operative suite and placed in the Supine position with a roll underneath his shoulders extending the neck .The entire right neck and upper chest prepped and draped in sterile fashion .Patient given intravenous sedation supervised by myself .Time out for the procedure obtained .Ultrasound used to identify the right internal jugular vein and the skin overlying it infiltrated with 0.5% Marcaine .Ultrasound used to guide puncture of the right internal jugular vein and a 0.012 inch guidewire placed .Incision made over the guide wire at the skin edge with a number 11 knife blade and a micro sheath placed over the guide wire into the right internal jugular vein .The small wire removed and exchanged for a 0.035 inch Advantage glide wire which was steered all the way down to the interior vena with fluoroscopy identifying the 12th rib and all the lumbar vertebral bodies .Over this wire we placed a long sheath down in the inferior vena cava and vena cavagram performed and we were able to deep the right and left renal veins .We planned to place the top of the filter at the top of the L2 vertebral body . The sheath was positioned here with the top of the marker at the top of L2 and the sheath withdrawn deploying the filter .The sheath removed and the skin incision puncture site closed with interrupted 4-0 nylon. Patient taken to recovery room and post-procedure chest x-ray showed pneumothorax thorax .Patient tolerated this well. Type of Anesthesia: Local (0.5% MARCAINE) Anesthesia Comment: PLUS MAC Findings: ABOVE Type of Fluids Used:: Lactated Ringers EBL: MINIMAL Hardware: VEMA CAVAL FILTER Complications:: NONE Needle/Sponge Count:: CORRECT Disposition/Condition: Pt. tolerated procedure without difficulty. PATIENT TAKEN TO THE FLOOR in stable condition.
[2023-09-25] MEDS: NS 1,000 ML IV 1,000 ML IV SCH (16:39)
[2023-09-26 04:44] VITALS: RESP 20; O2SAT 97
[2023-09-26 06:47] LABS: BASOPHILS # (AUTO) 0.2 X10^3/uL (0.0-0.1); BASOPHILS % (AUTO) 1.1 % (0.2-1.0); EOSINOPHILS # (AUTO) 0.3 x10^3/uL (0.0-0.2); EOSINOPHILS % (AUTO) 1.7 % (0.9-2.9); HEMOGLOBIN 7.7 g/dL (13.5-18.0); LYMPHOCYTES # (AUTO) 1.3 X10^3/uL (1.3-2.9); LYMPHOCYTES % (AUTO) 8.8 % (21.0-51.0); MEAN CORPUSCULAR HEMOGLOBIN 32.4 pg (27.0-34.0); MEAN CORPUSCULAR VOLUME 92.8 fL (80.0-100.0); MEAN PLATELET VOLUME 6.4 fL (7.4-11.0); MONOCYTES # (AUTO) 1.3 x10^3/uL (0.3-0.8); MONOCYTES % (AUTO) 8.6 % (0.0-13.0); NEUTROPHILS # (AUTO) 11.8 x10^3/uL (2.2-4.8); NEUTROPHILS % (AUTO) 79.8 % (42.0-75.0); PLATELET COUNT 373 X10^3/uL (150.0-450.0); RED BLOOD COUNT 2.38 X10^6/uL (4.7-6.0); RED CELL DISTRIBUTION WIDTH 15.8 % (11.6-16.5); WHITE BLOOD COUNT 14.8 X10^3/uL (3.6-10.0)
[2023-09-26 07:01] LABS: ALANINE AMINOTRANSFERASE 29 Units/L (12-78); ALBUMIN 1.8 g/dL (3.4-5.0); ALKALINE PHOSPHATASE 276 Units/L (46-116); ASPARTATE AMINO TRANSFERASE 24 Units/L (15-37); BLOOD UREA NITROGEN 11 mg/dL (7-18); CALCIUM 8.4 mg/dL (8.5-10.1); CARBON DIOXIDE 28.5 mmol/L (21-32); CHLORIDE 102 mmol/L (98-107); COR CA(FOR HYPOALB) 10.2 mg/dL (8.5-10.1); CREATININE 0.69 mg/dL (0.70-1.30); GLUCOSE 108 mg/dL (65-99); POTASSIUM 3.9 mmol/L (3.5-5.1); SODIUM 138 mmol/L (136-145); eGFR NON BLACK RACES > 60 (>60)
[2023-09-26 09:35] VITALS: BP 135/75; PULSE 100; TEMP 99.8
[2023-09-26] MEDS ORDERED: FLUARIX QUAD VACC (FOR AGE 6 MONTHS+) IM ONE (11:29)
[2023-09-26] MEDS: FLUARIX QUAD VACC (FOR AGE 6 MONTHS+) IM ONE (11:50)
[2023-09-26] MEDS: PREVNAR 20 SYRINGE IM ONE (11:51)
== END 2023-09-26 12:15 | disposition home or self-care (01) | DRG 175 ==
LOC: ER 17:18 → MED/SURG 20:49
PROVIDERS: ADMIT Family Medicine; ATTEND Obstetrics & Gynecology Obstetrics
DX: J18.0 Bronchopneumonia, unspecified organism; R06.02 Shortness of breath; E87.1 Hypo-osmolality and hyponatremia; C34.11 Malignant neoplasm of upper lobe, right bronchus or lung; R53.1 Weakness; R00.0 Tachycardia, unspecified; D50.0 Iron deficiency anemia secondary to blood loss (chronic); E83.42 Hypomagnesemia; I26.99 Other pulmonary embolism without acute cor pulmonale; R04.2 Hemoptysis